=== PATIENT | male | born 1980 | race Hispanic/Latino ===

== ENCOUNTER 2017-02-27 01:44 | Observation (INO) | payer OTHER ==
[2017-02-27 02:44] LABS: BASO % 0.5 % (0.0-2.0); EOS # 0.2 K/uL (0.0-0.7); EOS % 2.9 % (0.0-4.0); HEMATOCRIT 40.4 % (35.0-51.0); LYMPH # 1.7 K/uL (1.0-4.3); LYMPH % 31.4 % (20.0-40.0); MEAN CELL VOLUME 93.3 fl (80.0-94.0); MEAN CORPUSCULAR HEMOGLOBIN 31.1 pg (27.0-31.0); MEAN CORPUSCULAR HGB CONC 33.3 g/dL (33.0-37.0); MONO # 0.4 K/uL (0.0-0.8); NEUT # 3.1 K/uL (1.8-7.0); NEUT % 57.2 % (50.0-75.0); WHITE BLOOD COUNT 5.4 K/uL (4.8-10.8)
[2017-02-27 02:54] LABS: ALCOHOL SERUM 242 mg/dl (0-10); BLOOD UREA NITROGEN 19 mg/dl (9-20); CALCIUM 8.9 mg/dL (8.4-10.2); CARBON DIOXIDE 18 mmol/L (22-30); CHLORIDE 111 mmol/L (98-107); GFR AFRICAN-AMERICAN > 60; GLUCOSE,RANDOM 111 mg/dL (75-110); POTASSIUM 3.8 MMOL/L (3.6-5.0); SODIUM 144 mmol/l (132-148)
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
[2017-02-27 03:54] LABS: URINE BILIRUBIN NEGATIVE (NEGATIVE); URINE BLOOD SMALL (NEGATIVE); URINE COLOR STRAW (YELLOW); URINE GLUCOSE (UA) NEG (Normal); URINE KETONE NEGATIVE (NEGATIVE); URINE LEUKOCYTE ESTERASE NEG Leu/uL (Negative); URINE PROTEIN NEGATIVE (NEGATIVE); URINE UROBILINOGEN 0.2-1.0 mg/dL (0.2-1.0); WBC URINE < 1 /hpf (0-5)
[2017-02-27 03:56] LABS: RBC URINE 11 /hpf (0-3)
--- NOTE | 2017-02-27 04:46 | CT ---
EXAM: CT Maxillofacial Without Intravenous Contrast CLINICAL HISTORY: 37 years old, male; Injury or trauma; Fall; Initial encounter; Concussion /head injury; Without loss of consciousness; Additional info: Facial trauma TECHNIQUE: Axial computed tomography images of the face without intravenous contrast. All CT scans at this facility use one or more dose reduction techniques, viz.: automated exposure control; ma/kV adjustment per patient size (including targeted exams where dose is matched to indication; i.e. head); or iterative reconstruction technique. Coronal and sagittal reformatted images were created and reviewed. COMPARISON: No relevant prior studies available. FINDINGS: Bones/joints: No acute fracture. Soft tissues: Unremarkable. Orbits: Unremarkable as visualized. Sinuses: Scattered minimal mucosal thickening. No air-fluid levels. IMPRESSION: 1. No fracture. 2. Incidental/non-acute findings are described above.
[2017-02-27 06:02] LABS: PARTIAL THROMBOPLASTIN TIME 38.5 Seconds (25.6-37.1)
[2017-02-27 06:38] VITALS: TEMP 98.4
[2017-02-27 07:29] VITALS: RESP 14; O2SAT 98
--- NOTE | 2017-02-27 12:18 | CT ---
PROCEDURE: CT HEAD WITHOUT CONTRAST. HISTORY: [place] COMPARISON: None available. TECHNIQUE: Axial computed tomography images were obtained through the head/brain without intravenous contrast. Radiation dose: Total exam DLP = 1740 mGy-cm. This CT exam was performed using one or more of the following dose reduction techniques: Automated exposure control, adjustment of the mA and/or kV according to patient size, and/or use of iterative reconstruction technique. FINDINGS: HEMORRHAGE: No intracranial hemorrhage. BRAIN: No mass effect or edema. No atrophy or chronic microvascular ischemic changes. VENTRICLES: Unremarkable. No hydrocephalus. CALVARIUM: Unremarkable. PARANASAL SINUSES: Unremarkable as visualized. No significant inflammatory changes. MASTOID AIR CELLS: Unremarkable as visualized. No inflammatory changes. OTHER FINDINGS: None. IMPRESSION: Normal CT of the Head.
[2017-02-27 12:44] LABS: BILIRUBIN,TOTAL 0.5 mg/dl (0.2-1.3); TOTAL PROTEIN 7.1 G/DL (6.3-8.2)
[2017-02-27 12:45] LABS: ALB/GLOB RATIO 0.8 (1.0-2.1)
--- NOTE | 2017-02-27 14:44 | ED PDOC ---
- Laboratory Results Result Diagrams: 02/27/17 02:35 02/27/17 02:35 - ECG O2 Sat by Pulse Oximetry: 98 (RA) Pulse Ox Interpretation: Normal Medical Decision Making Medical Decision Making: Time: 8:00 --Patient is signed out to me by Dr. Bryan Villa, pending clinical sobriety. *See ED-OBS for further documentation Scribe Attestation: Documented by Josey James, acting as a scribe for Nelson Cheek MD Provider Scribe Attestation: All medical record entries made by the Scribe were at my direction and personally dictated by me. I have reviewed the chart and agree that the record accurately reflects my personal performance of the history, physical exam, medical decision making, and the department course for this patient. I have also personally directed, reviewed, and agree with the discharge instructions and disposition. Disposition Counseled Patient/Family Regarding: Diagnosis, Need For Followup - Clinical Impression Clinical Impression: Alcohol abuse - POA Present On Arrival: None - Disposition Disposition: Routine/Home Disposition Time: 02:31 Condition: GOOD ED OBSERVATION Date of observation admission: 02/27/17 Time of observation admission: 02:31 - Observation admission statement Patient is being placed in observation because:: ETOH intoxication, SI - Goals of Observation Goals of observation are:: Clinical sobriety, crisis eval, and final disposition - Progress Note Progress Note: 02/27/17 Time: 8:00 --Patient is resting. Vital signs stable. Time: 8:42 --Patient given 7.5 mg Warfarin PO Time: 9:30 --Patient is resting. Vital signs stable. Time: 11:00 --Patient continues to rest. Vital signs stable. Time: 11:51 --Labs added including liver profile, lipase, amylase Time: 12:30 --Patient is resting. Vital signs stable. Time: 14:00 --Patient continues to rest. Vital signs stable. Time: 14:40 --Patient is ambulating with steady gait, no signs of intoxication. Patient offers no further complaints. --Cleared for discharge by Dr. Kellie Vazquez Clinical Impression: Alcohol abuse
[2017-02-27 16:06] VITALS: BP 122/75; PULSE 68
== END 2017-02-27 02:31 | disposition home or self-care (01) ==
LOC: H.ER 01:44 → H.EROBSV 02:31
PROVIDERS: ADMIT Emergency Medicine; ATTEND Emergency Medicine
DX: F10.129 Alcohol abuse with intoxication, unspecified (principal); S61.512A Laceration without foreign body of left wrist, initial encounter; X78.9XXA Intentional self-harm by unspecified sharp object, initial encounter; Y90.8 Blood alcohol level of 240 mg/100 ml or more; Y92.9 Unspecified place or not applicable; Z86.711 Personal history of pulmonary embolism; Z86.718 Personal history of other venous thrombosis and embolism; Z79.01 Long term (current) use of anticoagulants
CPT/HCPCS: 70450; 70486; 80048; 80076; 80320; 80324; 80329; 80345; 80346; 80349; 80353; 80358; 80361; 81003; 82150; 82550; 83690; 83992; 85025; 85610; 85730; 96372; 99285; G0378; J1885

== ENCOUNTER 2017-06-19 23:10 | Emergency (ER) | payer OTHER ==
[2017-06-19 23:16] VITALS: BP 145/78; PULSE 84; RESP 16; TEMP 98.2; O2SAT 97
[2017-06-20 01:23] LABS: BASO % 0.4 % (0.0-2.0); EOS # 0.3 K/uL (0.0-0.7); HEMOGLOBIN 13.6 g/dL (12.0-18.0); LYMPH % 31.1 % (20.0-40.0); MEAN CELL VOLUME 92.2 fl (80.0-94.0); MEAN CORPUSCULAR HEMOGLOBIN 31.6 pg (27.0-31.0); MEAN CORPUSCULAR HGB CONC 34.3 g/dL (33.0-37.0); MONO # 0.6 K/uL (0.0-0.8); MONO % 9.9 % (0.0-10.0); NEUT # 3.5 K/uL (1.8-7.0); NEUT % 54.6 % (50.0-75.0); NRBC % 0.1 % (0.0-0.0); RBC 4.31 Mil/uL (4.40-5.90); RED CELL DISTRIBUTION WIDTH 12.9 % (11.5-14.5); WHITE BLOOD COUNT 6.5 K/uL (4.8-10.8)
[2017-06-20 01:34] LABS: ALB/GLOB RATIO 1.6 (1.0-2.1); ALBUMIN 4.7 g/dL (3.5-5.0); ALT/SGPT 54 U/L (21-72); AST/SGOT 47 U/L (17-59); BLOOD UREA NITROGEN 17 mg/dl (9-20); CALCIUM 9.4 mg/dL (8.4-10.2); GFR AFRICAN-AMERICAN > 60; GFR NON-AFRICAN AMERICAN > 60
--- NOTE | 2017-06-20 02:07 | ED PDOC ---
Lower Extremity Pain/Injury Time Seen by Provider: 06/20/17 00:07 Chief Complaint (Nursing): Lower Extremity Problem/Injury Chief Complaint (Provider): Lower extremity problem History Per: Patient History/Exam Limitations: no limitations Onset/Duration Of Symptoms: Days (x1 week) Current Symptoms Are (Timing): Still Present Additional Complaint(s): Paul Banegas is a 37 year old male, with a past medical history of Pulmonary embolism, who presents to the emergency department complaining of left leg injury with swelling and discoloration s/p fall onset x1 week ago. Patient is taking Xarelto but stopped yesterday because he will be having a carpal tunnel surgery. He denies any fever or chills. No further medical complaints. PMD: None provided. - Risk Factors DVT Risk Factors: Pos: History Of DVT, History Of PE Past Medical History Reviewed: Historical Data, Nursing Documentation, Vital Signs Vital Signs: Last Vital Signs Temp 98.2 F 06/19/17 23:13 Pulse 84 06/19/17 23:13 Resp 16 06/19/17 23:13 BP 145/78 06/19/17 23:13 Pulse Ox 97 06/19/17 23:13 - Medical History PMH: Deep Vein Thrombosis (x2), Pulmonary Embolism - Surgical History Surgical History: No Surg Hx - Family History Family History: States: Unknown Family Hx - Immunization History Hx Tetanus Toxoid Vaccination: Yes - Home Medications Home Medications: Ambulatory Orders Medication Instructions Recorded traMADol [Ultram] 50 mg PO TID PRN #15 tab 09/22/15 Warfarin [Coumadin] 7.5 mg PO QOTHERDAY 02/27/17 Clindamycin [Cleocin] 300 mg PO TID #30 cap 06/20/17 - Allergies Allergies/Adverse Reactions: Allergies Allergy/AdvReac Type Severity Reaction Status Date / Time No Known Allergies Allergy Verified 02/27/17 01:51 Review of Systems ROS Statement: Except As Marked, All Systems Reviewed And Found Negative Constitutional: Negative for: Fever, Chills Musculoskeletal: Positive for: Leg Pain (left leg injury with swelling and discoloration) Physical Exam - Reviewed Nursing Documentation Reviewed: Yes Vital Signs Reviewed: Yes - Physical Exam Appears: Positive for: Well, Non-toxic, No Acute Distress Head Exam: Positive for: ATRAUMATIC, NORMAL INSPECTION, NORMOCEPHALIC Skin: Positive for: Normal Color, Warm, Dry Eye Exam: Positive for: Normal appearance Neck: Positive for: Normal, Painless ROM, Supple Cardiovascular/Chest: Positive for: Regular Rate, Rhythm. Negative for: Murmur Respiratory: Positive for: Normal Breath Sounds. Negative for: Accessory Muscle Use, Respiratory Distress Extremity: Positive for: Normal ROM, Tenderness (lesion to the anterior region of lower left leg, with redness and tenderness. Wound is healing.), Calf Tenderness, Swelling, Other (Neurovascular intact. No streaking) Neurologic/Psych: Positive for: Alert, Oriented - Laboratory Results Result Diagrams: 06/20/17 01:12 06/20/17 01:12 - ECG O2 Sat by Pulse Oximetry: 97 (RA) Pulse Ox Interpretation: Normal Medical Decision Making Medical Decision Making: Initial Impression: Cellulitis Initial Plan: --Comp metabolic Panel --CBC w/ differential --PTT --PT --Duplex Lower extremity US --reevaluation 01:40 Extremity US FINDINGS: Deep veins: Unremarkable. No DVT in the visualized common femoral, femoral, proximal deep femoral or popliteal veins. The veins demonstrate normal color flow, are normally compressible, with normal phasic flow and/or augmentation response. Superficial veins: Unremarkable. No thrombus in the visualized great saphenous vein. Soft tissues: No acute findings. No popliteal cyst. IMPRESSION: No evidence of left lower extremity venous thrombosis. PT is stable for d.c with Rx for clindamycin and eval with pmd this week. Scribe Attestation: Documented by Oscar Moreno, acting as a scribe for Josephine Ovalle PA-C Provider Scribe Attestation: All medical record entries made by the Scribe were at my direction and personally dictated by me. I have reviewed the chart and agree that the record accurately reflects my personal performance of the history, physical exam, medical decision making, and the department course for this patient. I have also personally directed, reviewed, and agree with the discharge instructions and disposition. Disposition - Clinical Impression Clinical Impression: Cellulitis - Patient ED Disposition Is Patient to be Admitted: No Counseled Patient/Family Regarding: Studies Performed, Diagnosis, Need For Followup, Rx Given - Disposition Disposition: Routine/Home Disposition Time: 02:43 Condition: STABLE Prescriptions: Clindamycin [Cleocin] 300 mg PO TID #30 cap Instructions: Cellulitis (DC)
--- NOTE | 2017-06-20 08:07 | US ---
HISTORY: calf pain . PRIORS: None. FINDINGS: 2-D, color and duplex Doppler analysis of the lower extremity venous circulation using routine protocol from the femoral veins through the popliteal veins. Left posterior tibial vein was also identified. Venous compressibility: Normal. Flow and augmentation patterns: Normal. Visualized veins upper third of calf: Normal. Kelley cyst: None. IMPRESSION: No sonographic or Doppler evidence for DVT in left lower extremity.
== END 2017-06-20 03:10 | disposition home or self-care (01) ==
LOC: H.ER 23:10
DX: L03.116 Cellulitis of left lower limb (principal); Z79.01 Long term (current) use of anticoagulants; Z86.711 Personal history of pulmonary embolism; Z86.718 Personal history of other venous thrombosis and embolism